=== PATIENT | male | born 1975 | race Caucasian/White ===

== ENCOUNTER 2016-09-09 09:54 | Emergency (ER) | payer BC ==
[2016-09-09 10:01] VITALS: BP 136/79
[2016-09-09] MEDS ORDERED: Lidocaine 1% 20 ML MDV ONE (10:04)
[2016-09-09] MEDS ORDERED: Lidocaine 1% 20 ML MDV INJECT ONE (10:14)
[2016-09-09] MEDS ORDERED: Bacitracin/Neomycin/Polymyxin B Oint 0.9 GM U/D Packet ONE (10:25)
[2016-09-09] MEDS ORDERED: Bacitracin/Neomycin/Polymyxin B Oint 28.4 GM Tube TOP ONE (10:30)
--- NOTE | 2016-09-09 10:30 | EDM.PDOC ---
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 area is gapping open and bleeding. Onset: Sudden Location: Reports: Other (fnger) Severity: Mild - Related Data Allergies Allergy/AdvReac Type Severity Reaction Status Date / Time No Known Allergies Allergy Verified 09/09/16 10:01 Home Meds: Home Meds Lisinopril/Hydrochlorothiazide [Lisinopril-Hctz 20-25 mg Tab] 1 each PO DAILY [History] Sertraline HCl [Sertraline HCl] 50 mg PO BEDTIME 08/07/15 [History] Past Medical History Cardiovascular History: Reports: Hypertension Psychiatric History: Reports: Depression Social & Family History - Family History Family Medical History: Noncontributory - Tobacco Use Smoking Status *Q: Current Every Day Smoker Years of Tobacco use: 15 Packs/Tins Daily: 1 - Caffeine Use Caffeine Use: Reports: Coffee - Recreational Drug Use Recreational Drug Use: No ED ROS GENERAL - Review of Systems Review Of Systems: See Below Constitutional: Reports: No Symptoms Skin: Reports: Wound (left second finger.) ED EXAM, SKIN/RASH Exam: See Below Exam Limited By: No Limitations General Appearance: Alert, WD/WN, No Apparent Distress Skin: Warm, Dry, Wound/Incision (2 cm laceration to the end of the left second finger that s gapping open) ED SKIN PROCEDURES - Laceration/Wound Repair Left Finger Lac/Wound length In cm: 2 Appearance: Superficial Distal NVT: Neuro & Vascular Intact Anesthetic Type: Digital Local Anesthesia - Lidocaine (Xylocaine): 1% Plain Local Anesthetic Volume: 3cc Exploration/Debridement/Repair: in a Bloodless Field Closed with: Sutures Suture Size: other (5-0) Suture Type: Nylon, Interrupted Course - Vital Signs Last Recorded V/S: Last Vital Signs Temp 97.1 F 09/09/16 09:59 Pulse 87 09/09/16 09:59 Resp 20 09/09/16 09:59 BP 136/79 09/09/16 09:59 Pulse Ox 97 09/09/16 09:59 - Orders/Labs/Meds Meds: Medications Discontinued Medications Generic Name Dose Route Start Last Admin Trade Name Mckenzie PRN Reason Stop Dose Admin Lidocaine HCl Confirm 09/09/16 10:04 Xylocaine 1% Administered 09/09/16 10:05 Dose 20 ml .ROUTE .STK-MED ONE Lidocaine HCl 5 ml 09/09/16 10:14 09/09/16 10:18 Xylocaine 1% INJECT 09/09/16 10:15 5 ml ONETIME ONE Administration Departure - Departure Time of Disposition: 10:31 Disposition: Home, Self-Care 01 Condition: Good Clinical Impression: Laceration - Discharge Information Forms: ED Department Discharge Additional Instructions: sutures out in 10 days keep clean and dry Recheck if any concerns
== END 2016-09-09 10:47 | disposition home or self-care (01) ==
LOC: CC.ED 09:54
DX: S61.211A Laceration without foreign body of left index finger without damage to nail, initial encounter (principal); F17.210 Nicotine dependence, cigarettes, uncomplicated; I10 Essential (primary) hypertension; F32.9 Major depressive disorder, single episode, unspecified; Z79.899 Other long term (current) drug therapy; W27.8XXA Contact with other nonpowered hand tool, initial encounter
CPT/HCPCS: 12001; 99283